=== PATIENT | male | born 1960 | race Caucasian/White ===

== ENCOUNTER 2018-05-29 13:09 | Day surgery (SDC) | payer BC ==
[~2018-05-29] VITALS: Ht 185.4 cm; Wt 113.4 kg
[~2018-05-29 13:09] MED LIST: COZAAR100 MG PO; FARXIGA10 MG PO; METFORMIN HCL850 MG PO; NORVASC5 MG PO; PRAVACHOL20 MG PO
--- NOTE | 2018-05-29 15:07 | NUR ---
05/29/18 1507 Trish [place] 1501-PATIENT ARRIVED TO PACU ON 4L NC O2 SAT 97% WEANED TO RA. PATIENT DROWSY DENIES PAIN OR NASUEA. ENCOURAAGED TO PASS FLATUS. RR EVEN. 1507- AT BEDSIDE. GLUCOSE 119
--- NOTE | 2018-05-31 22:04 | OR ---
[facility] [address] [place], [place] [address] Signed DATE OF OPERATION: 05/29/2018 SURGEON: Romero Fontanez MD PREOPERATIVE DIAGNOSIS: Colon screening. POSTOPERATIVE DIAGNOSIS: Polyps x3 (60 cm, 55 cm, and 40 cm). PROCEDURE: Total colonoscopy to cecum with hot snare polypectomy x2 and cold morcellation polypectomy x1. ANESTHESIA: Intravenous sedation, fentanyl 150 mcg, and versed 8 mg. INDICATION: This 58-year-old white man is a patient of Dr. Gallegos and is here for screening colonoscopy. He has no symptoms of bleeding, diarrhea, or constipation. He has no family history of colon cancer. He is here for screening colonoscopy. He understands the risks of bleeding, infection, and perforation. FINDINGS: The prep was adequate. Complete colonoscopy was undertaken to the cecum. Irrigation was required in the right colon in particular, but was complete otherwise. There were three polyps noted, one was small, but pedunculated. The other two were sessile, all three were excised with combination of techniques. There were no other findings of concern except for a few diverticula. DESCRIPTION OF PROCEDURE: The patient was brought to the endoscopy suite and placed in lateral decubitus position, given intravenous sedation to the point of slurred speech and nystagmus. Digital rectal examination was normal. An Olympus video colonoscope was passed in the rectum and manipulated into the sigmoid where diverticula were noted. Irrigation was undertaken as needed and the scope was ultimately passed to the cecum. The ileocecal valve and appendiceal orifice were identified. Photographs were taken. The scope was carefully withdrawn and irrigation undertaken. Upon withdrawal of the scope, there was no sign of abnormality until Electronically Signed By: ROMERO FONTANEZ MD 05/31/18 2204 PATIENT NAME: BUBBA PEREIRA OPERATIVE REPORT DATE OF : 62 REPORT #: [id number] PHYSICIAN: ROMERO FONTANEZ MD PCP: TEJA GALLEGOS MD REPORT IS CONFIDENTIAL AND NOT TO BE RELEASED WITHOUT AUTHORIZATION [facility] [address] [place], [place] [address] Signed approximately 60 cm from the anal verge where a small pedunculated polyp was noted. This was excised with hot snare polypectomy technique. There was another polyp 5 cm away at 55 cm which was excised with combination of snare and cold morcellation technique. Both polyps were extracted, one with a Dickey net. Scope was reintroduced after offloading the larger polyp back to that site. Upon withdrawal of scope, another small polyp was noted at 40 cm. This was excised with cold morcellation technique. Diverticula were once again noted. Scope was withdrawn and retroflexed view of the rectum was undertaken showing no sign of abnormalities. Scope was removed. The patient was taken to recovery room in good condition. CONCLUDING DIAGNOSES: 1. Polyps x3, 40 cm, 55 cm, and 60 cm. 2. Diverticular change. PLAN: Recommend high-fiber diet. Repeat colonoscopy in 5 years sooner if clinically indicated. He will return to the ongoing care of Dr. Gallegos otherwise. MD CHARO Rain/FAVIOLA /[id number] cc: Teja Gallegos MD Copies: TEJA GALLEGOS MD ~ Electronically Signed By: ROMERO FONTANEZ MD 05/31/18 2204 PATIENT NAME: BUBBA PEREIRA OPERATIVE REPORT DATE OF : 62 REPORT #: [id number] PHYSICIAN: ROMERO FONTANEZ MD PCP: TEJA GALLEGOS MD REPORT IS CONFIDENTIAL AND NOT TO BE RELEASED WITHOUT AUTHORIZATION
== END 2018-05-29 15:43 | disposition home or self-care (01) ==
LOC: OPS 13:09 → DS 13:09 → OPS 14:00 → DS 14:00 → OPS 15:43
PROVIDERS: Surgery
PROC: 0DBE8ZX Excision of Large Intestine, Via Natural or Artificial Opening Endoscopic, Diagnostic (ICD-10-PCS; 2018-05-29)
PROC: 0DBE8ZX Excision of Large Intestine, Via Natural or Artificial Opening Endoscopic, Diagnostic (ICD-10-PCS; principal; 2018-05-29 14:00)
DX: Z12.11 Encounter for screening for malignant neoplasm of colon (principal); D12.6 Benign neoplasm of colon, unspecified; K57.30 Diverticulosis of large intestine without perforation or abscess without bleeding; E11.9 Type 2 diabetes mellitus without complications; I10 Essential (primary) hypertension; F17.210 Nicotine dependence, cigarettes, uncomplicated; E66.3 Overweight; Z79.84 Long term (current) use of oral hypoglycemic drugs; Z79.899 Other long term (current) drug therapy; Z68.33 Body mass index [BMI] 33.0-33.9, adult
CPT/HCPCS: 99153; G0500; J2250; J3010; J7120

== ENCOUNTER 2024-05-27 02:50 | Emergency (ER) | payer BC ==
[~2024-05-27] VITALS: Ht 185.4 cm; Wt 98.6 kg
[~2024-05-27 02:50] MED LIST changes: +ACETAMINOPHEN 500 MG TAB PO ONE; +ASPIRIN 81 MG CHEW PO ONE
[2024-05-27 05:10] VITALS: BP 116/72
[2024-05-27 06:18] LABS: ALBUMIN 4.1 g/dL (3.4-5.0); ALBUMIN/GLOBULIN RATIO 1.58 (1.1-2.4); ANION GAP 14.5 (7-21); BILIRUBIN, TOTAL 0.5 ng/dL (0.2-1.0); BUN/CREATININE RATIO 22.91 (6.0-28.6); CALCIUM 9.7 mg/dL (8.5-10.1); CREATININE, SERUM 0.96 mg/dL (0.70-1.30); MAGNESIUM 1.8 mg/dL (1.8-2.4); POTASSIUM 3.5 mmol/L (3.5-5.1); PROTEIN, TOTAL 6.7 g/dL (6.4-8.2)
[2024-05-27 06:19] LABS: BASOPHILS 1.2 % (0-2); EOSINOPHILS 4.1 % (0-6); HEMATOCRIT 42.1 % (35.0-50.0); HEMOGLOBIN 14.6 g/dL (12.0-18.0); LYMPHOCYTES 27.1 % (24-44); MCH 30.5 (27-36); MCHC 34.6 g/dl (30-36); MCV 88.3 fl (81-99); MONOCYTES 5.9 % (0-12); NEUTROPHILS 61.7 % (39-80); PLATELET COUNT 147 K/uL (140-440); RBC 4.77 M/ul (4.3-5.7); RDW 13.7 (10.5-15.0)
--- NOTE | 2024-05-27 21:31 | EKG ---
[facility] [address] [facility] [place], [place] [address] Signed Normal sinus rhythm Normal ECG No previous ECGs available Confirmed by Candido Owens MD ([id number]) on 05/27/2024 9:31:10 PM Electronically Signed By: CANDIDO OWENS MD 05/27/242130 PATIENT NAME: RICA PEREIRA Electrocardiogram DATE OF : 62 PHYSICIAN: CANDIDO OWENS MD REPORT #: [id number] REPORT IS CONFIDENTIAL AND NOT TO BE RELEASED WITHOUT AUTHORIZATION
== END 2024-05-27 05:10 | disposition home or self-care (01) ==
LOC: ED 02:50
PROVIDERS: Internal Medicine
DX: R51.9 Headache, unspecified (principal); F17.200 Nicotine dependence, unspecified, uncomplicated; Z79.899 Other long term (current) drug therapy; Z79.84 Long term (current) use of oral hypoglycemic drugs
CPT/HCPCS: 36415; 70450; 71045; 80053; 83690; 83735; 83880; 84484; 85025; 85379; 93005; 93010; 99285-25; A9270